=== PATIENT | male | born 1945 | race Caucasian/White ===

== ENCOUNTER 2019-08-16 16:43 | Inpatient (IN) ==
[2019-08-16] MEDS ORDERED: ONDANSETRON 4 MG/2 ML VIAL IV STA (17:07)
[2019-08-16] MEDS ORDERED: methylPREDNISolone SOD SUC 125 MG/2 ML VIAL IV STA (17:07)
[2019-08-16] MEDS ORDERED: LEVOFLOXACIN INJ 750 MG in PREMIX 1 EACH IV STA (17:07)
[2019-08-16] MEDS ORDERED: ALBUTEROL 2.5 MG/3 ML NEB RESP TX SCH (17:30)
[2019-08-16 18:19] LABS: Basophils % 0.2 % (0.0-0.8); Eosinophils % 0.1 % (0.00-10.9); Hematocrit 40.6 VOL% (42.0-52.0); Immature Granulocytes % 0.7 %; Lymphocytes # 0.6 10*3/uL (1.4-4.0); Lymphocytes % 4.1 % (21.2-54.2); Mean Corpuscular Volume 78.5 FL (87-102); Mean Platelet Volume 10.3 FL (9.6-12.0); Monocytes % 4.6 % (1.7-12.7); Neutrophils % 90.3 % (38.7-73.9); Platelet Count 194 T/CUMM (130-400); Red Blood Count 5.17 MC/CUMM (3.8-5.5); Red Cell Distribution Width 15.8 % (9.3-17.3); White Blood Count 13.8 T/CUMM (4-12)
[2019-08-16 18:30] LABS: INR 1.1; Partial Thromboplastin Time 28.9 SECS (20.8-36.0)
[2019-08-16 18:39] LABS: Alanine Aminotransferase 70 U/L (16-61); Albumin 2.4 G/DL (3.4-5.0); Alkaline Phosphatase 980 U/L (45-117); Aspartate Amino Transferase 135 U/L (0-37); Blood Urea Nitrogen 18 MG/DL (7-18); Calcium 7.7 MG/DL (8.5-10.1); Estimated Glom Filtration Rate 77 ML/MIN; Glucose 114 MG/DL (74-106); Troponin I < 0.015 NG/ML (0.00-0.045)
[2019-08-16 18:41] LABS: Anisocytosis Slight; Eosinophils 1 % (0-10); Hypochromasia Slight; Microcytosis Slight; Segmented Neutrophils 97 % (50-85); Total Cells Counted 100
[2019-08-16 18:42] LABS: Giant Platelets 1+; Platelet Estimate Adequate
[2019-08-16] MEDS ORDERED: ALBUTEROL 2.5 MG/3 ML NEB RESP TX PRN (20:26)
[2019-08-16] MEDS ORDERED: MORPHINE 4 MG/1 ML VIAL IV PRN (21:17)
[2019-08-16] MEDS ORDERED: ONDANSETRON 4 MG/2 ML VIAL IV PRN (21:17)
[2019-08-16] MEDS ORDERED: NICOTINE 21 MG/24 HR PATCH TRANSDERM PRN (21:17)
[2019-08-16] MEDS ORDERED: guaiFENesin/DM ER 600-30 MG TABLET PO PRN (21:17)
[2019-08-16] MEDS ORDERED: PROMETHAZINE 25 MG TABLET PO PRN (21:17)
[2019-08-16] MEDS: BUDESONIDE 0.5 MG/2 ML NEB RESP TX SCH (23:00)
[2019-08-16] MEDS: ARFORMOTEROL 15 MCG/2 ML NEB RESP TX SCH (23:00)
[2019-08-17] MEDS: ENOXAPARIN 40 MG/0.4 ML SYRINGE SUBCUT SCH ×2 (00:20→20:59)
[2019-08-17] MEDS: CLINDAMYCIN INJ 600 MG in PREMIX 1 EACH IV SCH ×2 (00:20→06:10)
[2019-08-17] MEDS: methylPREDNISolone SOD SUC 40 MG/1 ML VIAL IV SCH ×5 (00:20→23:41)
[2019-08-17] MEDS: ALBUTEROL/IPRATROPIUM 3 ML NEB RESP TX SCH ×4 (00:48→19:26)
[2019-08-17 03:29] LABS: Allen Test Positive
[2019-08-17 03:30] LABS: ABG Base Excess 4.5 MMOL/L (-2.5-2.5); ABG HCO3 28.4 MMOL/L (20-26); ABG Oxygen Saturation 95.8 % (95-100); ABG PCO2 41.4 MM HG (35-48); ABG PH 7.452 (7.35-7.45); ABG PO2 82.5 MM HG (80-95); ABG TCO2 25.4 MMOL/L (23-27)
[2019-08-17 05:36] LABS: Basophils % 0.1 % (0.0-0.8); Hematocrit 38.8 VOL% (42.0-52.0); Hemoglobin 12.2 GM/DL (14.0-18.0); Immature Granulocytes % 0.6 %; Immature Granulocytes Absolute 0.05 #; Lymphocytes # 0.3 10*3/uL (1.4-4.0); Lymphocytes % 3.2 % (21.2-54.2); Mean Corpuscular HGB Conc 31.4 GM/DL (32-36); Mean Corpuscular Volume 78.5 FL (87-102); Mean Platelet Volume 10.2 FL (9.6-12.0); Monocytes % 1.7 % (1.7-12.7); Neutrophils % 94.4 % (38.7-73.9); Platelet Count 205 T/CUMM (130-400); Red Blood Count 4.94 MC/CUMM (3.8-5.5); Red Cell Distribution Width 15.8 % (9.3-17.3)
[2019-08-17 05:53] LABS: Calcium 7.9 MG/DL (8.5-10.1); Osmolality,Calculated 270.2 MOS/KG (273-304)
[2019-08-17 06:52] LABS: Hypochromasia Slight; Lymphocytes 3 % (20-55); Platelet Estimate Normal; Segmented Neutrophils 97 % (50-85); Total Cells Counted 100
[2019-08-17] MEDS: BUDESONIDE 0.5 MG/2 ML NEB RESP TX SCH ×2 (07:46→19:26)
[2019-08-17] MEDS: ARFORMOTEROL 15 MCG/2 ML NEB RESP TX SCH ×2 (07:46→19:26)
[2019-08-17] MEDS: PANTOPRAZOLE 40 MG TABLET PO SCH (09:24)
[2019-08-17 10:21] LABS: Ferritin 869.5 ng/ml (26-388)
[2019-08-17] MEDS ORDERED: FLUCONAZOLE 200 MG TABLET PO ONE (10:24)
[2019-08-17] MEDS: LACTATED RINGERS 1,000 ML IV SCH ×2 (12:12→21:00)
[2019-08-17] MEDS: NYSTATIN 500,000 UNIT/5 ML UDCUP SWISH/SWAL SCH ×3 (15:55→21:00)
[2019-08-17] MEDS: LEVOFLOXACIN INJ 750 MG in PREMIX 1 EACH IV SCH (17:54)
[2019-08-17 19:41] LABS: Apearance,Urine CLEAR (Clear); Bilirubin,Urine Negative (Negative); Blood, Urine Negative (Negative); Glucose,Urine (UA) Negative (Negative); Ketones,Urine Negative (Negative); Mucus,Urine Occasional /LPF (Occasional); Nitrite,Urine Negative (Negative); Protein,Urine Negative; RBC,Urine 5 /HPF (0-4); Urine Color Yellow (Yellow); Urine Specific Gravity 1.055 (1.001-1.035); Urine Urobilinogen < 2.0 EU/DL (0.2-1.0); WBC,Urine 2 /HPF (0-6)
[2019-08-17 20:10] LABS: Barbiturates Screen,Urine Negative (Negative); Benzodiazepines Screen,Urine Negative (Negative); Cannabinoid Screen,Urine Negative (Negative); Opiate Screen,Urine Positive (Negative); Phencyclidine Screen,Urine Negative (Negative)
[2019-08-18] MEDS: ALBUTEROL/IPRATROPIUM 3 ML NEB RESP TX SCH ×4 (00:41→20:00)
[2019-08-18 05:16] LABS: Hemoglobin 10.8 GM/DL (14.0-18.0); Immature Granulocytes % 0.3 %; Immature Granulocytes Absolute 0.02 #; Lymphocytes # 0.3 10*3/uL (1.4-4.0); Lymphocytes % 4.6 % (21.2-54.2); Mean Corpuscular HGB Conc 32.7 GM/DL (32-36); Mean Corpuscular Volume 77.5 FL (87-102); Mean Platelet Volume 10.2 FL (9.6-12.0); Monocytes % 1.9 % (1.7-12.7); Neutrophils % 93.2 % (38.7-73.9); Platelet Count 190 T/CUMM (130-400); Red Blood Count 4.26 MC/CUMM (3.8-5.5); Red Cell Distribution Width 15.7 % (9.3-17.3); White Blood Count 6.5 T/CUMM (4-12)
[2019-08-18 05:37] LABS: Lymphocytes 2 % (20-55); Segmented Neutrophils 96 % (50-85); Total Cells Counted 100
[2019-08-18 05:38] LABS: Hypochromasia 1+; Platelet Estimate Adequate
[2019-08-18] MEDS: methylPREDNISolone SOD SUC 40 MG/1 ML VIAL IV SCH ×2 (05:38→17:04)
[2019-08-18 05:46] LABS: Albumin 2.1 G/DL (3.4-5.0); Bilirubin,Total 0.9 MG/DL (0.2-1.0); Osmolality,Calculated 269.1 MOS/KG (273-304); Total Protein 5.2 G/DL (6.4-8.3)
[2019-08-18] MEDS: LACTATED RINGERS 1,000 ML IV SCH ×4 (05:51→20:12)
[2019-08-18] MEDS: BUDESONIDE 0.5 MG/2 ML NEB RESP TX SCH ×2 (07:03→20:00)
[2019-08-18] MEDS: ARFORMOTEROL 15 MCG/2 ML NEB RESP TX SCH ×2 (07:03→20:00)
[2019-08-18] MEDS ORDERED: methylPREDNISolone SOD SUC 40 MG/1 ML VIAL IV SCH (09:30)
[2019-08-18] MEDS: PANTOPRAZOLE 40 MG TABLET PO SCH (09:57)
[2019-08-18] MEDS: NYSTATIN 500,000 UNIT/5 ML UDCUP SWISH/SWAL SCH ×4 (09:58→21:47)
[2019-08-18] MEDS: FERROUS SULFATE 325 MG TABLET PO SCH (11:03)
[2019-08-18] MEDS: POLYETHYLENE GLYCOL POWDER 17 GM PACK PO SCH (11:03)
[2019-08-18 13:39] LABS: Hepatitis B Core IgM Quant 0.07 Index; Hepatitis B Surface Ag Quant < 0.10 Index; Hepatitis B Surface Ag Result Negative (Negative); Hepatitis C Virus Ab Quant 0.08 Index; Hepatitis C Virus Ab Result Negative (Negative)
[2019-08-18 13:43] LABS: HIV Antigen/Antibody Result Nonreactive (Nonreactive)
[2019-08-18] MEDS: LEVOFLOXACIN INJ 750 MG in PREMIX 1 EACH IV SCH (18:10)
[2019-08-18] MEDS: ENOXAPARIN 40 MG/0.4 ML SYRINGE SUBCUT SCH (21:47)
[2019-08-19] MEDS: methylPREDNISolone SOD SUC 40 MG/1 ML VIAL IV SCH ×2 (00:07→10:12)
[2019-08-19] MEDS: ALBUTEROL/IPRATROPIUM 3 ML NEB RESP TX SCH ×3 (01:35→13:45)
[2019-08-19] MEDS: LACTATED RINGERS 1,000 ML IV SCH ×2 (03:03→11:38)
[2019-08-19 05:07] LABS: Hematocrit 30.1 VOL% (42.0-52.0); Hemoglobin 9.7 GM/DL (14.0-18.0); Immature Granulocytes % 0.5 %; Immature Granulocytes Absolute 0.04 #; Lymphocytes # 0.3 10*3/uL (1.4-4.0); Lymphocytes % 3.6 % (21.2-54.2); Mean Corpuscular HGB Conc 32.2 GM/DL (32-36); Mean Platelet Volume 9.4 FL (9.6-12.0); Monocytes % 4.4 % (1.7-12.7); Neutrophils % 91.5 % (38.7-73.9); Platelet Count 188 T/CUMM (130-400); Red Blood Count 3.86 MC/CUMM (3.8-5.5); Red Cell Distribution Width 15.9 % (9.3-17.3); White Blood Count 8.1 T/CUMM (4-12)
[2019-08-19 05:30] LABS: Hypochromasia 2+; Lymphocytes 2 % (20-55); Segmented Neutrophils 94 % (50-85); Total Cells Counted 100
[2019-08-19 05:31] LABS: Anisocytosis 1+; Microcytosis 1+; Platelet Estimate Adequate; Target Cells Slight
[2019-08-19 05:39] LABS: Albumin 1.9 G/DL (3.4-5.0); Bilirubin,Total 0.8 MG/DL (0.2-1.0); Calcium 7.7 MG/DL (8.5-10.1); Total Protein 4.8 G/DL (6.4-8.3)
[2019-08-19 05:46] LABS: Folate 6.6 NG/ML (5.4-24.0)
[2019-08-19] MEDS ORDERED: MAGNESIUM SULF RIDER 2 GM in PREMIX 1 EACH IV PRN (07:06)
[2019-08-19] MEDS ORDERED: MAGNESIUM SULF RIDER 4 GM in PREMIX 1 EACH IV PRN (07:06)
[2019-08-19] MEDS: BUDESONIDE 0.5 MG/2 ML NEB RESP TX SCH (08:10)
[2019-08-19] MEDS: ARFORMOTEROL 15 MCG/2 ML NEB RESP TX SCH (08:10)
[2019-08-19] MEDS ORDERED: ERGOCALCIFEROL 50,000 UNIT CAPSULE PO SCH (09:00)
[2019-08-19] MEDS ORDERED: POTASSIUM CHLORIDE 20 MEQ TABLET PO ONE (09:44)
[2019-08-19] MEDS: FERROUS SULFATE 325 MG TABLET PO SCH (10:12)
[2019-08-19] MEDS: PANTOPRAZOLE 40 MG TABLET PO SCH (10:12)
[2019-08-19] MEDS: NYSTATIN 500,000 UNIT/5 ML UDCUP SWISH/SWAL SCH ×2 (10:12→13:27)
[2019-08-19] MEDS: POLYETHYLENE GLYCOL POWDER 17 GM PACK PO SCH (10:12)
[2019-08-19 11:35] VITALS: BP 111/68
== END 2019-08-19 13:52 | disposition home health service (06) | DRG 189 ==
LOC: EDUNIT# → EDBD → N.ED 16:43 → SUATTDRO 21:17 → N.EDINP 21:17 → N.TELEN 21:39
PROVIDERS: ADMIT Internal Medicine Cardiovascular Disease; ATTEND Internal Medicine

== ENCOUNTER 2019-08-21 14:02 | Observation (INO) ==
[2019-08-21] MEDS ORDERED: SODIUM CHLORIDE 0.9% 1,000 ML IV STA (14:45)
[2019-08-21 15:23] LABS: Basophils % 0.1 % (0.0-0.8); Hematocrit 42.2 VOL% (42.0-52.0); Hemoglobin 13.4 GM/DL (14.0-18.0); Immature Granulocytes % 0.6 %; Immature Granulocytes Absolute 0.08 #; Lymphocytes # 0.4 10*3/uL (1.4-4.0); Mean Corpuscular HGB Conc 31.8 GM/DL (32-36); Mean Corpuscular Volume 78.9 FL (87-102); Mean Platelet Volume 9.8 FL (9.6-12.0); Monocytes % 2.6 % (1.7-12.7); Neutrophils % 93.7 % (38.7-73.9); Platelet Count 166 T/CUMM (130-400); Red Blood Count 5.35 MC/CUMM (3.8-5.5); Red Cell Distribution Width 15.8 % (9.3-17.3); White Blood Count 12.5 T/CUMM (4-12)
[2019-08-21 15:37] LABS: Albumin 2.3 G/DL (3.4-5.0); Bilirubin,Total 1.1 MG/DL (0.2-1.0); Calcium 7.8 MG/DL (8.5-10.1); Osmolality,Calculated 262.5 MOS/KG (273-304); Prealbumin 11.4 MG/DL (20-40); Total Protein 5.6 G/DL (6.4-8.3)
[2019-08-21 15:50] LABS: Band Neutrophils 1 % (0-10); Lymphocytes 3 % (20-55); Microcytosis Slight; Platelet Estimate Normal; Segmented Neutrophils 93 % (50-85); Total Cells Counted 100
[2019-08-21] MEDS ORDERED: ALBUTEROL/IPRATROPIUM 3 ML NEB RESP TX ONE (18:52)
[2019-08-21] MEDS: ALBUTEROL/IPRATROPIUM 3 ML NEB RESP TX SCH (21:18)
[2019-08-22] MEDS: FLUTICASONE/SALMETEROL 100-50 DISKUS 14 DOSE INH SCH ×2 (00:58→09:47)
[2019-08-22] MEDS: NYSTATIN 500,000 UNIT/5 ML UDCUP SWISH/SWAL SCH ×5 (00:59→17:59)
[2019-08-22 05:33] LABS: Apearance,Urine CLEAR (Clear); Bilirubin,Urine Negative (Negative); Blood, Urine Negative (Negative); Glucose,Urine (UA) Negative (Negative); Ketones,Urine Negative (Negative); Mucus,Urine Few /LPF (Occasional); Nitrite,Urine Negative (Negative); Protein,Urine Negative; RBC,Urine 3 /HPF (0-4); Squamous Epithelial Cell,Urine Occasional /HPF (0-10); Urine Color Yellow (Yellow); WBC,Urine 5 /HPF (0-6)
[2019-08-22 05:47] LABS: Basophils % 0.1 % (0.0-0.8); Hematocrit 37.7 VOL% (42.0-52.0); Hemoglobin 11.9 GM/DL (14.0-18.0); Immature Granulocytes % 0.4 %; Immature Granulocytes Absolute 0.04 #; Lymphocytes # 0.2 10*3/uL (1.4-4.0); Mean Corpuscular HGB Conc 31.6 GM/DL (32-36); Mean Corpuscular Volume 78.7 FL (87-102); Mean Platelet Volume 9.4 FL (9.6-12.0); Monocytes % 2.7 % (1.7-12.7); Neutrophils % 94.8 % (38.7-73.9); Platelet Count 173 T/CUMM (130-400); Red Blood Count 4.79 MC/CUMM (3.8-5.5); Red Cell Distribution Width 15.8 % (9.3-17.3); White Blood Count 10.2 T/CUMM (4-12)
[2019-08-22 06:26] LABS: Hypochromasia 1+; Lymphocytes 2 % (20-55); Segmented Neutrophils 95 % (50-85); Total Cells Counted 100
[2019-08-22 06:27] LABS: Microcytosis 1+; Platelet Estimate Adequate; Target Cells Slight
[2019-08-22 06:30] LABS: Albumin 1.9 G/DL (3.4-5.0); Bilirubin,Total 1.1 MG/DL (0.2-1.0); Calcium 7.5 MG/DL (8.5-10.1); Osmolality,Calculated 269.1 MOS/KG (273-304); Thyroid Stimulating Hormone 9.22 uIU/ml (0.358-3.74); Total Protein 4.9 G/DL (6.4-8.3)
[2019-08-22] MEDS: ALBUTEROL/IPRATROPIUM 3 ML NEB RESP TX SCH ×3 (07:49→20:02)
[2019-08-22] MEDS ORDERED: POTASSIUM CHLORIDE 20 MEQ TABLET PO ONE (09:00)
[2019-08-22] MEDS ORDERED: FERROUS SULFATE 325 MG TABLET PO SCH (09:00)
[2019-08-22] MEDS ORDERED: SKIN HEALING OINT (AQUAPHOR) 50 GM TUBE TOP PRN (14:12)
[2019-08-22 16:43] VITALS: BP 109/72
[2019-08-22] MEDS ORDERED: ZINC OXIDE PASTE 113 GM TUBE TOP SCH (21:00)
[2019-08-23] MEDS ORDERED: LEVOTHYROXINE 25 MCG TABLET PO SCH (06:30)
== END 2019-08-22 20:43 | disposition home health service (06) ==
LOC: EDUNIT# → EDBD → N.ED 14:02 → INTOOBSV 16:42 → N.EDINP 16:42 → N.5E 18:57
PROVIDERS: ADMIT Internal Medicine; ATTEND Internal Medicine